=== PATIENT | female | born 1965 | race Hispanic/Latino ===

== ENCOUNTER 2016-12-06 15:12 | Inpatient (IN) | payer MEDICAID, OTHER ==
[2016-12-06 15:45] VITALS: O2SAT 98
[2016-12-06 17:02] LABS: BASO % 0.3 % (0.0-2.0); EOS % 0.6 % (0.0-4.0); HEMATOCRIT 34.5 % (34.0-47.0); LYMPH # 2.3 K/uL (1.0-4.3); MEAN CELL VOLUME 93.4 fL (81.0-99.0); MEAN CORPUSCULAR HEMOGLOBIN 32.2 pg (27.0-31.0); MEAN CORPUSCULAR HGB CONC 34.5 g/dL (33.0-37.0); MEAN PLATELET VOLUME 9.6 fL (7.2-11.7); MONO # 0.4 K/uL (0.0-0.8); MONO % 7.4 % (0.0-10.0); NRBC % 0.1 % (0.0-2.0); WHITE BLOOD COUNT 5.6 K/uL (4.8-10.8)
[2016-12-06 17:17] LABS: CHLORIDE 98 mmol/L (98-107)
[2016-12-06 17:18] LABS: POTASSIUM 3.7 mmol/L (3.6-5.2); SODIUM 139 mmol/L (132-148)
[2016-12-06 17:20] LABS: BILIRUBIN,TOTAL 0.6 mg/dL (0.2-1.3); CARBON DIOXIDE 28 mmol/L (22-30); GFR AFRICAN-AMERICAN > 60
[2016-12-06 17:21] LABS: ALB/GLOB RATIO 1.1 (1.0-2.1); ALCOHOL SERUM < 10 mg/dl (0-10); ALKALINE PHOSPHATASE 81 U/L (38-126); ALT/SGPT 90 U/L (9-52); AST/SGOT 80 U/L (14-36); BLOOD UREA NITROGEN 10 mg/dL (7-17); CALCIUM 8.5 mg/dl (8.6-10.4); GLUCOSE,RANDOM 98 mg/dL (65-105); TOTAL PROTEIN 6.9 g/dL (6.3-8.3)
--- NOTE | 2016-12-06 17:48 | C.PDOC ---
Time Seen by Provider: 12/06/16 15:42 Chief Complaint (Nursing): Psychiatric Evaluation History Per: Patient Onset/Duration Of Symptoms: Days Current Symptoms Are (Timing): Still Present Suicide/Self Injury Attempted (Context): Other (Threw herself out of a moving car 2 days ago, but no injuries. ) Modifying Factor(s): Narcotics Severity: Moderate Associated Symptoms: Anxiety, Depression, Suicidal Thoughts Additional History Per: Prior Records Past Medical History Reviewed: Historical Data, Nursing Documentation, Vital Signs Vital Signs: Last Vital Signs Temp 98.6 F 12/06/16 15:29 Pulse 81 12/06/16 15:29 Resp 15 12/06/16 15:29 BP 124/84 12/06/16 15:29 Pulse Ox 98 12/06/16 17:48 - Medical History PMH: Bipolar Disorder, Depression, Hepatitis (C), HIV, Seizures (epileptic), Sexually Transmitted Disease Surgical History: Appendectomy - [facility] DETOXIFICATION SERVICES FOR SUBSTANCE ABUSE TREATMENT (02/27/16) GROUP DONOR TECHNICIAN FOR SUBSTANCE ABUSE TREATMENT, PSYCHOEDUCATION (02/27/16) GROUP PSYCHOTHERAPY (01/02/16) INDIVIDUAL PSYCHOTHERAPY, SUPPORTIVE (10/02/15) MEDICATION MANAGEMENT (01/02/16) PHARMACOTHERAPY FOR SUBSTANCE ABUSE, METHADONE MAINT (10/02/15) Family History: States: Unknown Family Hx - Social History Hx Alcohol Use: No Hx Substance Use: Yes (Snorts Heroin) - Immunization History Hx Tetanus Toxoid Vaccination: No Hx Influenza Vaccination: Yes Hx Pneumococcal Vaccination: Yes Review Of Systems Except As Marked, All Systems Reviewed And Found Negative. Constitutional: Negative for: Fever Cardiovascular: Negative for: Chest Pain Respiratory: Negative for: Shortness of Breath Musculoskeletal: Negative for: Neck Pain Skin: Negative for: Rash Neurological: Negative for: Weakness, Seizures Psych: Positive for: Anxiety, Psychosis Physical Exam - Physical Exam Appears: No Acute Distress Skin: Normal Color, Warm, Dry, No Rash Head: Atraumatic, Normacephalic Eye(s): bilateral: PERRL, EOMI Neck: Normal ROM, No Midline Cervical Tenderness, No Step Off Deformity, Supple Chest: Symmetrical, No Deformity, No Tenderness Cardiovascular: Rhythm Regular Respiratory: Normal Breath Sounds, No Accessory Muscle Use Gastrointestinal/Abdominal: Soft Back: No CVA Tenderness Extremity: Normal ROM, No Deformity Neurological/Psych: Oriented x3, Normal Motor, Normal Sensation ED Course And Treatment - Laboratory Results Result Diagrams: 12/06/16 16:59 12/06/16 16:59 Lab Interpretation: No Acute Changes ECG: Interpreted By Me, Viewed By Me ECG Rhythm: Sinus Rhythm ECG Interpretation: No Acute Changes Rate From EC O2 Sat by Pulse Oximetry: 98 Pulse Ox Interpretation: Normal Progress Note: Pt is medically stable for psychiatric admission. Disposition Counseled Patient/Family Regarding: Studies Performed, Diagnosis - Disposition Disposition: HOSPITALIZED Disposition Time: 19:18 Condition: STABLE - Clinical Impression Clinical Impression: Schizoaffective disorder, depressive type Decision To Admit - Pt Status Changed To: Hospital Disposition Of: Inpatient - Admit Certification Admit to Inpatient:: After my assessment, the patient will require hospitalization for at least two midnights. This is because of the severity of symptoms shown, intensity of services needed, and/or the medical risk in this patient being treated as an outpatient. - InPatient: Physician Admission Certification: I certify that this patient requires 2 or more midnights of care for the following reason:: Psych. - . Bed Request Type: Psychiatry Admitting Physician: Santiago Henderson Patient Diagnosis: Schizoaffective disorder, depressive type
[2016-12-06 19:01] LABS: RBC URINE 11 /hpf (0-3); TRANSITIONAL EPITHIAL < 1 /hpf (0-3); URINE BACTERIA OCC (<OCC); URINE BILIRUBIN NEGATIVE (NEGATIVE); URINE BLOOD 1+ (NEGATIVE); URINE CALCIUM OXALATE CRYSTALS MOD /hpf (<OCC); URINE COLOR Yellow (YELLOW); URINE GLUCOSE (UA) NORMAL (Normal); URINE KETONE NEGATIVE (NEGATIVE); URINE LEUKOCYTE ESTERASE 1+ Leu/uL (Negative); URINE PROTEIN NEGATIVE (NEGATIVE); WBC URINE 4 /hpf (0-5)
--- NOTE | 2016-12-06 20:38 | PCM.BM ---
Addendum entered and electronically signed by Christie Enriquez 12/07/16 11:10: Discharge/Continuing Care - Education Needs Education Needs: Patient Medication, Patient Coping Skills, Patient Community resources - Discharge Discharge Criteria: Tolerates medication w/o severe side effects, No longer exhibiting s/s of withdrawal, Reduction of target symptoms Discharge to:: Other (Pt wants to return to [facility] for HIV[facility] - Treatment Team Participation Discussed with Family/SO: No Was Patient/Family/SO present at Treatment Team Meeting: Yes Original Note: <Echo Terrell - Last Filed: 12/06/16 20:36> Treatment Plan Problems - Problems identified on initial assessmt Depression Date Initiated: 12/06/16 Time Initiated: 20:10 Assessment reference: NA Status: Active Opiates Abuse Date Initiated: 12/06/16 Time Initiated: 20:10 Assessment reference: NA Status: Active (Heroin, Suboxone) Treatment assets and liabiliti Patient Assests: cooperative, ADL independent, negotiates basic needs Patient Liabilities: live alone, financial problems (Homeless), poor support system, substance abuse (Heroin), medical problems (HIV, Hep C) - Milieu Protocol Maintain good personal hygiene: daily Encourage regular showers, daily Remind patient to perform daily oral care Maintain personal safety: every shift Educate patient to report safety concerns to staff, every shift Monitor environment for contraband/sharps Medication safety: Monitor for expected outcome, potential side effects: every shift, Assess barriers to learning: every shift, Assess readiness for medication education: every shift <Christie Enriquez - Last Filed: 12/07/16 09:37> Discharge/Continuing Care - Education Needs Education Needs: Patient Medication, Patient Coping Skills, Patient Community resources - Discharge Discharge Criteria: Tolerates medication w/o severe side effects, No longer exhibiting s/s of withdrawal, Reduction of target symptoms <Darion Wood - Last Filed: 12/07/16 10:54> - Diagnosis (1) Bipolar disorder with psychotic features Status: Acute Interventions: 12/07/16 10:54 Attend groups Take meds (2) Opioid abuse Status: Acute Interventions: 12/07/16 10:54 Attend groups Take meds
[2016-12-07 08:38] VITALS: RESP 19
--- NOTE | 2016-12-07 10:55 | PCM.PSYCH ---
Initial Psychiatric Evaluation - Initial Psychiatric Evaluation Type of Admission: Voluntary Legal Status: Capacity Chief Complaint (in patient's own words): "I feel depressed and I'm withdrawing" History of Present Illness and Precipitating Events: Patient is a 51 year old, single, homeless female with a history of Bipolar disorder and heroin use disorder admitted for treatment of depression, suicidal ideations and heroin detox. Patient presents with complaints of depression and withdrawal symptoms. Patient has had suicidal ideations of overdosing with pills for the past 3 weeks. Patient reports decreased sleep (2 hours/night), decreased interest in activities, decreased appetite, increased psychomotor agitation and decreased energy. Patient previously was staying at [facility] in [facility] until 3 weeks ago when she was kicked out. There she received suboxone. Patient reports anxiety and hearing voices saying "hurt yourself". She says she has been hearing these voices for years. Denies hallucinations. Patient is emotionally unstable. Was initially very calm and coorperative but a half hour later she says "If I don't get my medication in 5 minutes, I'm going to kill myself". Patient started using heroin at the age of 30 and relapsed using 1 bag daily for the past 3 weeks since she has become homeless. Prior to her relapse, she was sober for 6 months. Patient uses 2 mg Xanax that she says she was prescribed. Pt denies use of alcohol, cocaine, MDMA and other drugs. Psych hx: Bipolar disorder, 8 hospitalizations and 7x detox - last time for both was 6 months ago at [facility]. Family psych hx: Father was an alcoholic Medical hx: HIV, Hepatitis C, seizure hx. Reports seizures every 3 weeks. Most recent time was [address] and she woke up in the hospital Social hx: single, homeless, one 23 year old son who is with a baby due in May. Has a very supportive boyfriend for the past 23 years who is HIV negative. Denies legal issues and traumatic life events. Current Medications: Active Medications Generic Name Dose Route Start Last Admin Trade Name Freq PRN Reason Stop Dose Admin Clonidine HCl 0.1 mg 12/06/16 20:52 Catapres PO Q8 PRN COWS Score More or Equal to 5 Dicyclomine HCl 10 mg 12/06/16 20:55 Bentyl PO Q8H PRN Abdominal cramps Gabapentin 300 mg 12/06/16 21:00 12/07/16 10:35 Neurontin PO 300 mg BID SAVANNAH Administration Hydroxyzine HCl 25 mg 12/06/16 20:55 12/07/16 07:56 Atarax PO 25 mg Q6H PRN Administration Anxiety Levetiracetam 250 mg 12/06/16 21:00 12/07/16 10:35 Keppra PO 250 mg BID SAVANNAH Administration Loperamide HCl 2 mg 12/06/16 20:52 Imodium PO Q8 PRN Diarrhea Methadone HCl 5 mg 12/07/16 10:50 Methadone PO 12/07/16 10:51 STAT STA Ondansetron HCl 4 mg 12/06/16 20:52 Zofran Tab PO Q8 PRN Nausea/Vomiting Pneumococcal Polyvalent Vaccine 0.5 ml 12/09/16 10:00 Pneumovax 23 Vaccine IM 12/09/16 10:01 .ONCE ONE Quetiapine Fumarate 100 mg 12/07/16 11:00 Seroquel PO BID SAVANNAH Sertraline HCl 25 mg 12/07/16 11:00 Zoloft PO DAILY SAVANNAH Trazodone HCl 50 mg 12/06/16 20:55 Desyrel PO HS PRN Insomnia Past Psychiatric History - Past Psychiatric History Previous Treatment History: Inpatient Pertinent Medical Hx (Current Medical&Sleep Prob, Allergies): Allergies Allergy/AdvReac Type Severity Reaction Status Date / Time No Known Allergies Allergy Verified 02/27/16 20:37 No Known Home Med 02/27/16 Review of Systems - Review of Systems All systems: reviewed and no additional remarkable complaints except - Psychiatric Psychiatric: As Per HPI, Abnormal Sleep Pattern, Anhedonia, Anxiety, Auditory Hallucinations, Change in Appetite, Depression, Irritability, Suicidal Ideation. absent: Visual Hallucinations Mental Status Examination - Personal Presentation Personal Presentation: Looks stated age - Affect Affect: Constricted, Depressed - Motor Activity Motor Activity: Psychomotor Agitation - Reliability in Providing Information Reliability in Providing Information: Poor, due to altered mood - Speech Speech: Organized - Mood Mood: Depressed, Anxious - Formal Thought Process Formal Thought Process: Hallucinations, Flight of ideas - Hallucinations/Delusions Hallucinations: Auditory - Obsessions/Compulsions Obsessions: No Compulsions: No - Cognitive Functions Orientation: Person, Place, Situation, Time Sensorium: Alert Attention/Concentration: Attentive Abstract Thinking: Gay Estimate of Intelligence: Below average Judgement: Imparied, as evidence by: Poor judgement, Imparied, as evidence by: Lack of insight into illness Memory: Recent intact, as evidence by: Ability to recall events of the day - Risk Risk: Suicidal, Seizure, Withdrawal, Diminished functioning - Strength & Assets Inventory Strength & Assets Inventory: Family support - Limitations Limitations: Other (Homeless) DSM 5 DX - DSM 5 DSM 5 Diagnosis: Bipolar disorder Mixed severe with psychotic features Opioid use disorder severe Opioid withdrawal - Recommended/Plan of Treatment Treatment Recommendations and Plan of Treatment: Bipolar disorder Continue medications CBT and support Attend groups Seroquel 100 mg by mouth BID Gabapentin 300 mg by mouth BID trazodone 50 mg by mouth QHS Opiods use disorder: Methadone taper Gabapentin for augmentation As needed meds and vitamins Attend groups and activities [place] for abstinence and CBT for relapse prevention Support and psychoeducation Consider and encourage MAT Refer to after care Seizure disorder Continue Keppra 250 mg by mouth twice a day Projected ELOS: 4-5 days Prognosis: Good with treatment
[2016-12-07] MEDS: Emtricitabine-Tenofovir 200 mg-300 mg Tab PO SCH (18:17)
--- NOTE | 2016-12-08 14:39 | PCM.PYCHPN ---
Psychiatric Progress Note - Psychiatric Progress Note Patient seen today, length of contact: 16 min Patient Chief Complaint: "I am feeling better" Problems Identified/Issues Discussed: Patient seen and evaluated, chart reviewed and discussed with the nurse. Patient reports irritability and agitation and still reports racing of thoughts and anxiety. Patient still reports withdrawal symptoms including anxiety, cramps , bone pains, sweating and headaches. However denies any suicidal ideation or homicidal ideation. Denies any auditory or visual hallucinations. Taking medication and denied any side effects. Supportive therapy and psychoeducation were given Medication Change: Yes (start depakote ) Medical Record Reviewed: Yes Mental Status Examination - Cognitive Function Orientation: Person, Place, Situation, Time Memory: Intact Attention: WNL Concentration: Poor Association: WNL Fund of Knowledge: Poor - Mood Mood: Depressed, Anxious - Affect Affect: Broad, Constricted - Speech Speech: Soft - Formal Thought Process Formal Thought Process: Flight of ideas - Suicidal Ideation Suicidal Ideation: No - Homicidal Ideation Homicidal Ideation: No Goal/Treatment Plan - Goal/Treatment Plan Need for Continued Stay: Discharge may exacerbated symptoms, Severe functional impairment Progress Toward Problem(s) and Goals/Treatment Plan: Bipolar disorder Continue medications CBT and support Attend groups Seroquel 100 mg by mouth BID Gabapentin 300 mg by mouth BID trazodone 50 mg by mouth QHS Start depakote 250 mg PO BID Opiods use disorder: Methadone taper Gabapentin for augmentation As needed meds and vitamins Attend groups and activities [place] for abstinence and CBT for relapse prevention Support and psychoeducation Consider and encourage MAT Refer to after care Seizure disorder Continue Keppra 250 mg by mouth twice a day - Smoking Cessation Smoking Cessation Initiated: No
[2016-12-08] MEDS: Emtricitabine-Tenofovir 200 mg-300 mg Tab PO SCH (17:24)
[2016-12-09 07:46] VITALS: BP 131/93; PULSE 71; TEMP 98.4
--- NOTE | 2016-12-09 09:41 | PCM.PYCHDC ---
Mental Status Examination - Mental Status Examination Orientation: Person, Place, Situation, Time Memory: Intact Mood: Neutral Affect: Constricted Speech: Soft Attention: WNL Concentration: WNL Association: WNL Fund of Knowledge: WNL Formal Thought Process: No Impairment Description of patient's judgement and insight: fair, fair Psychotic Thoughts and Behaviors: denies any AVH Suicidal Ideation: No Current Homicidal Ideation?: No Discharge Summary - Discharge Note Reason for Hospitalization: Patient is a 51 year old, single, homeless female with a history of Bipolar disorder and heroin use disorder admitted for treatment of depression, suicidal ideations and heroin detox. Patient presents with complaints of depression and withdrawal symptoms. Patient has had suicidal ideations of overdosing with pills for the past 3 weeks. Patient reports decreased sleep (2 hours/night), decreased interest in activities, decreased appetite, increased psychomotor agitation and decreased energy. Patient previously was staying at [facility] for Contin[facility] Care in [facility] until 3 weeks ago when she was kicked out. There she received suboxone. Patient reports anxiety and hearing voices saying "hurt yourself". She says she has been hearing these voices for years. Denies hallucinations. Patient is emotionally unstable. Was initially very calm and coorperative but a half hour later she says "If I don't get my medication in 5 minutes, I'm going to kill myself". Patient started using heroin at the age of 30 and relapsed using 1 bag daily for the past 3 weeks since she has become homeless. Prior to her relapse, she was sober for 6 months. Patient uses 2 mg Xanax that she says she was prescribed. Pt denies use of alcohol, cocaine, MDMA and other drugs. Consultations:: List each consultation separately and include: 1. Reason for request. 2. Findings. 3. Follow-up Summary of Hospital Course include:: 1. Description of specific treatment plan utilized for patients during their course of treatmen. 2. Summarize the time- course for resolution of acute symptoms and/or regressed behaviors. 3. Describe issues identified and worked on during hospitalization. 4. Describe medication utilized. 5. Describe medical problems identified and treated. 6. Reassessment of suicide risk Summary of Hospital Course: During the course of her stay, patient (pt) started progressively improving and she no longer remained anxious, depressed and suicidal. Her mood was getting better and she started attending groups and meetings and started socializing. The doses of her medications were maximized and patient denied any feelings of hopelessness, helplessness, and worthlessness, denied any problem with the sleep or appetite, denied suicidal ideation or homicidal ideation. Pt denied any auditory or visual hallucinations. Patient reported improvement in her mood and tolerated these medications very well and denied any side effects. - Diagnosis (1) Bipolar disorder with psychotic features Status: Acute (2) Opioid abuse Status: Acute - Final Diagnosis (DSM 5) Condition upon Discharge: STABLE DSM 5: Bipolar disorder Mixed severe with psychotic features Opioid use disorder severe Opioid withdrawal Disposition: HOME/ ROUTINE Follow-up Treatment Plan: Education: Pt was educated and counseled about the risks and benefits of taking and not taking medications. Pt was educated and counseled about the risks of drinking and abusing drugs. Pt was educated and counseled to go to the ER or call 911 if pt develop suicidal ideation or homicidal ideation, worsening of symptoms or severe side effects of the meds. Prescriptions/Medication Reconciliation: Divalproex [Depakote DR] 500 mg PO BID 14 Days Emtricitabine/Tenofovir Diso [Truvada 200 MG-300 MG] 1 tab PO DAILY #14 tab levETIRAcetam [Keppra] 250 mg PO BID 14 Days QUEtiapine [Seroquel] 100 mg PO BID 14 Days traZODone [Desyrel] 50 mg PO HS PRN #14 tab PRN Reason: Insomnia - Smoking Cessation Smoking Cessation Medication prescribed: No - Antipsychotic Medications Pt discharged on 2 or more routine antipsychotic medications: No
[2016-12-09] MEDS ORDERED: Divalproex 250 mg DR Tab PO SCH (10:00)
[2016-12-09] MEDS ORDERED: Pneumococcal 23-Valent Vaccine IM ONE (10:00)
[2016-12-09] MEDS: Emtricitabine-Tenofovir 200 mg-300 mg Tab PO SCH (10:15)
--- NOTE | 2016-12-09 12:46 | CARD ---
APPROVED REPORT EKG Measurement Heart [id number] <Conclusion> Normal sinus rhythm Normal ECG
== END 2016-12-09 10:25 | disposition home or self-care (01) | DRG 430 ==
LOC: C.ER 15:12 → C.5E 19:19
PROC: GZ56ZZZ Individual Psychotherapy, Supportive (ICD-10-PCS; principal; 2016-12-06)
DX: F31.64 Bipolar disorder, current episode mixed, severe, with psychotic features (principal); G40.909 Epilepsy, unspecified, not intractable, without status epilepticus; F11.23 Opioid dependence with withdrawal; F41.9 Anxiety disorder, unspecified; Z59.0 Homelessness; Z21 Asymptomatic human immunodeficiency virus [HIV] infection status